=== PATIENT | male | born 1970 | race Caucasian/White ===

== ENCOUNTER → 2016-10-13 | Outpatient (REF) | payer BC | LOC: M OUTALCOH 15:52 | PROVIDERS: ATTEND Psychiatry & Neurology Psychiatry | DX: Z53.9 Procedure and treatment not carried out, unspecified reason (principal) ==

== ENCOUNTER 2020-07-30 14:41 | Inpatient (IN) | payer BC, SELFPAY ==
[~2020-07-30] VITALS: Ht 167.6 cm; Wt 80.6 kg
[2020-07-30] MEDS ORDERED: CLON0.5T2 PO (14:52)
[2020-07-30] MEDS ORDERED: PROP10TA56 PO (14:52)
[2020-07-30] MEDS ORDERED: CITA40TA4 PO (14:52)
[2020-07-30] MEDS ORDERED: IBUP200T45 PO (14:53)
[2020-07-30] MEDS ORDERED: ROBI1LIQ9 PO (14:53)
[2020-07-30] MEDS ORDERED: IBUPROFEN 600MG TAB PO ONE (15:00)
[2020-07-30] MEDS ORDERED: ACETAMINOPHEN 500 MG TAB PO ONE (15:15)
[2020-07-30] MEDS ORDERED: sub (15:19)
--- NOTE | 2020-07-30 16:03 | REP ---
INDICATION: cough fever COMPARISON: None. TECHNIQUE: Portable AP view of the chest FINDINGS: Subtle alveolar infiltrates primarily involving the bilateral perihilar, right infrahilar and right upper lobes suggest multifocal pneumonia. Findings may be related to COVID-19 pulmonary disease and correlation is required. No effusion. No pneumothorax. Mediastinum and cardiac silhouette appear normal. IMPRESSION: Perihilar and primarily right upper lobe opacities suggesting pneumonia. <Electronically signed by Armen Banerjee > 07/30/20 [id number]
[2020-07-30 16:05] LABS: RSV AMPLIFICATION NEGATIVE (NEGATIVE)
[2020-07-30] MEDS ORDERED: cefTRIAXone SOD 1 GM in D5W MINI-BAG PLUS 50 ML IV ONE (16:15)
[2020-07-30] MEDS ORDERED: AZITHROMYCIN INJ 500 MG, VIAL MATE ADAPTER 1 EACH in D5W 250 ML IV ONE (16:15)
[2020-07-30 16:59] LABS: HEMATOCRIT 35.8 % (42.0-52.0); HEMOGLOBIN 11.6 g/dl (13.5-17.5); MEAN CORPUSCULAR HEMOGLOBIN 30.2 pg (27.0-33.0); MEAN CORPUSCULAR HGB CONC 32.4 g/dl (32.0-36.5); MEAN CORPUSCULAR VOLUME 93.2 fl (80.0-96.0); PLATELET COUNT, AUTOMATED 234 10^3/uL (150-450); RED BLOOD COUNT 3.84 10^6/uL (4.30-6.10); WHITE BLOOD COUNT 13.6 10^3/uL (4.0-10.0)
[2020-07-30 17:24] LABS: ALBUMIN 3.2 GM/DL (3.2-5.2); ALT/SGPT 46 U/L (12-78); BILIRUBIN,TOTAL 1.4 MG/DL (0.2-1.0); BLOOD UREA NITROGEN 18 MG/DL (7-18); CALCIUM LEVEL 7.9 MG/DL (8.5-10.1); CARBON DIOXIDE LEVEL 31 MEQ/L (21-32); CHLORIDE LEVEL 106 MEQ/L (98-107); CREATININE FOR GFR 0.97 MG/DL (0.70-1.30); GLOMERULAR FILTRATION RATE > 60.0 (>56); GLUCOSE, FASTING 122 MG/DL (70-100); POTASSIUM SERUM 3.9 MEQ/L (3.5-5.1); SODIUM LEVEL 142 MEQ/L (136-145); TOTAL PROTEIN 6.5 GM/DL (6.4-8.2)
[2020-07-30 17:25] LABS: ATYPICAL LYMPH 3 % (0-5); BASOPHILS 2 % (0-1); LYMPHOCYTES 10 % (16-44); MONOCYTES 2 % (0-5); NEUTROPHILS 56 % (28-66); PLATELET ESTIMATE NORMAL (NORMAL)
[2020-07-30] MEDS: NS 1,000 ML IV SCH (17:29)
[2020-07-30] MEDS ORDERED: clonazePAM 0.5 MG TAB PO PRN (17:45)
[2020-07-30] MEDS ORDERED: ALBUTEROL SULFATE 2.5 MG/0.5 ML INH NEB SOLN INH PRN (17:45)
[2020-07-30] MEDS ORDERED: ACETAMINOPHEN TAB 650MG DOSE (2X325MG) PO PRN (17:45)
--- NOTE | 2020-07-30 17:55 | HPEPDOC ---
General Date of Admission 07/30/20 Date of Service: Jul 30, 2020 Chief Complaint The patient is a 50-year-old male admitted with a reason for visit of FEVER. Source: Patient Exam Limitations: No limitations Timing/Duration: 24 hours Severity: Moderate Associated Symptoms: Shortness of breath History of Present Illness Patient is 50 years old male with past history of opioid abuse, anxiety presented to the hospital with shortness of breath. Patient stated that for past 24 hours he has been having increased shortness of breath with fever and chills. He stated that his fever was around 103 associated with fatigue. In emergency room patient was found to have on chest x-ray Perihilar and primarily right upper lobe opacities suggesting pneumonia. Also patient developed leukocytosis of 13.7. Patient denied chest pain, palpitations, diarrhea or dysuria Home Medications Scheduled Citalopram Hydrobromide (Citalopram HBr) 40 Mg Tablet, 40 MG PO DAILY, (Reported) Scheduled PRN Clonazepam (Clonazepam) 0.5 Mg Tablet, 0.5 MG PO QHS PRN for SLEEP, (Reported) Ibuprofen (Ibu-200) 200 Mg Tablet, 400 MG PO QID PRN for PAIN / FEVER, (Reported) Propranolol HCl (Propranolol HCl) 10 Mg Tablet, 10 MG PO BID PRN for ANXIETY, (Reported) Allergies Coded Allergies: No Known Allergies (Unverified , 09/08/13) Past Medical History Medical History Anxiety, opioid abuse Family History I personally reviewed family history and found not pertinent Social History * Smoker: Denies Alcohol: sober Drugs: marijuana, other (methadone) A-FIB/CHADSVASC A-FIB History Current/History of A-Fib/PAF?: No Current PO Anticoag Therapy: No Review of Systems Constitutional: Reports: Chills, Fever, Weakness Eyes: Denies: Pain ENT: Denies: Head Aches Skin: Denies: Rash, Lesions Pulmonary: Reports: Dyspnea, Cough Cardiovascular: Denies: Chest Pain, Palpitations Gastrointestinal: Denies: Nausea, Vomiting Genitourinary: Denies: Dysuria Hematologic: Denies: Bruising Endocrine: Denies: Polydipsia, Polyphagia Musculoskeletal: Denies: Neck Pain Neurological: Denies: Weakness Psych: Reports: Mood Normal Physical Examination General Exam: Positive: Alert, Cooperative Eye Exam: Positive: PERRLA ENT Exam: Positive: Atraumatic Neck Exam: Positive: Supple; Negative: JVD Chest Exam: Positive: Rhonchi Heart Exam: Positive: Tachycardic Telemetry: Positive: Sinus Abdomen Exam: Positive: Normal bowel sounds Extremity Exam: Negative: Cyanosis Skin Exam: Positive: Nl turgor and temperature Neuro Exam: Positive: Normal Gait, Strength at 5/5 X4 ext Psych Exam: Positive: Mental status NL Vital Signs Vital Signs Date Time Temp Pulse Resp B/P (MAP) Pulse Ox O2 Delivery O2 Flow Rate FiO2 07/30/20 17:17 104 18 94 Nasal Cannula 2.0 07/30/20 17:15 121/63 (82) 07/30/20 16:47 100.7 Laboratory Data Labs 24H Laboratory Tests 2 07/30/20 15:10: Coronavirus (COVID-19)(PCR) NEGATIVE, Influenza Type A (RT-PCR) NEGATIVE, Influenza Type B (RT-PCR) NEGATIVE, Respiratory Syncytial Virus (PCR) NEGATIVE 07/30/20 16:23: Neutrophils (%) (Auto) , Nucleated Red Blood Cells % (auto) 0.0, Neutrophils 56, Band Neutrophils 27H, Lymphocytes (Manual) 10L, Monocytes (Manual) 2, Basophils (Manual) 2H, Atypical Lymphocytes 3, Red Blood Cell Morphology NORMAL, Platelet Estimate NORMAL, Anion Gap 5L, Glomerular Filtration Rate > 60.0, Lactic Acid Level 2.0, Calcium Level 7.9L, Total Bilirubin 1.4H, Aspartate Amino Transf (AST/SGOT) 47H, Alanine Aminotransferase (ALT/SGPT) 46, Alkaline Phosphatase 91, Total Protein 6.5, Albumin 3.2, Albumin/Globulin Ratio 1.0 CBC/BMP Laboratory Tests 07/30/20 16:23 Microbiology Microbiology 07/30/20 Blood Culture, Received Pending 07/30/20 Blood Culture, Received Pending Assessment/Plan Patient is 50 years old male with past history of opioid abuse, anxiety presented to the hospital with shortness of breath. Patient stated that for past 24 hours he has been having increased shortness of breath with fever and chills. He stated that his fever was around 103 associated with fatigue. In emergency room patient was found to have on chest x-ray Perihilar and primarily right u pper lobe opacities suggesting pneumonia. Also patient developed leukocytosis of 13.7. Patient denied chest pain, palpitations, diarrhea or dysuria Problems (1) Sepsis Status: Acute Problem Text: Secondary to multifocal pneumonia Patient developed leukocytosis, fever, tachypnea and tachycardia Blood culture IV fluid, antibiotic therapy (2) Multifocal pneumonia Status: Acute Problem Text: Community acquired pneumonia Azithromycin IV, ceftriaxone IV Inhalers Prednisone 40 mg for 5 days Plan / VTE VTE Prophylaxis Ordered?: Yes YURI REICH DO Jul 30, 2020 17:55
[2020-07-30] MEDS: predniSONE 20 MG TAB PO SCH (18:23)
--- NOTE | 2020-07-30 18:42 | ECGEPIP ---
[facility] - ED Test Date: 2020-07-30 Pat Name: KVNG GIRALDO Department: Room: - Gender: Male Road Design Engineer: TSTYESENIART : 1970 Requested By: Gisella Silverman Order Number: [id number] Reading MD: Gisella Silverman Measurements Intervals [place] Rate: 107 P: 47 CO: 144 QRS: 3 QRSD: 93 T: 31 QT: 322 QTc: 431 Interpretive Statements SINUS TACHYCARDIA NONSPECIFIC T-WAVE ABNORMALITY ABNORMAL RHYTHM ECG No prior Electronically Signed on 07-30-2020 18:41:50 EST by Gisella Silverman
[2020-07-30] MEDS: IPRATROPIUM 0.5MG/ALBUTEROL 2.5MG INH SOL UD 3ML (DUONEB) INH SCH (19:56)
[2020-07-30 20:35] VITALS: BP 105/59
[2020-07-31] MEDS: NS 1,000 ML IV SCH ×2 (01:07→09:06)
[2020-07-31] MEDS: IPRATROPIUM 0.5MG/ALBUTEROL 2.5MG INH SOL UD 3ML (DUONEB) INH SCH ×4 (04:00→11:29)
[2020-07-31 06:02] VITALS: BP 133/73
[2020-07-31 07:18] LABS: HEMATOCRIT 35.3 % (42.0-52.0); HEMOGLOBIN 11.1 g/dl (13.5-17.5); MEAN CORPUSCULAR HEMOGLOBIN 29.9 pg (27.0-33.0); MEAN CORPUSCULAR HGB CONC 31.4 g/dl (32.0-36.5); MEAN CORPUSCULAR VOLUME 95.1 fl (80.0-96.0); PLATELET COUNT, AUTOMATED 223 10^3/uL (150-450); RED BLOOD COUNT 3.71 10^6/uL (4.30-6.10); WHITE BLOOD COUNT 17.7 10^3/uL (4.0-10.0)
[2020-07-31 07:53] LABS: ALT/SGPT 40 U/L (12-78); BILIRUBIN,TOTAL 0.9 MG/DL (0.2-1.0); BLOOD UREA NITROGEN 16 MG/DL (7-18); CALCIUM LEVEL 8.1 MG/DL (8.5-10.1); CARBON DIOXIDE LEVEL 30 MEQ/L (21-32); CHLORIDE LEVEL 109 MEQ/L (98-107); CREATININE FOR GFR 0.74 MG/DL (0.70-1.30); GLOMERULAR FILTRATION RATE > 60.0 (>56); GLUCOSE, FASTING 110 MG/DL (70-100); MAGNESIUM LEVEL 2.3 MG/DL (1.8-2.4); POTASSIUM SERUM 3.7 MEQ/L (3.5-5.1); SODIUM LEVEL 144 MEQ/L (136-145); TOTAL PROTEIN 6.2 GM/DL (6.4-8.2)
[2020-07-31] MEDS ORDERED: CitaloPRAM (CeleXA) 20 MG TAB PO SCH (09:00)
[2020-07-31] MEDS ORDERED: ENOXAPARIN 40MG/0.4ML SYRINGE (J1650 PER 10MG) SC SCH (09:00)
[2020-07-31] MEDS: predniSONE 20 MG TAB PO SCH (09:06)
[2020-07-31] MEDS ORDERED: LEVO250T12 PO (11:02)
[2020-07-31] MEDS ORDERED: PRED20TA PO (11:02)
--- NOTE | 2020-07-31 14:47 | DS.PDOC ---
Discharge Summary General Date of Admission Jul 30, 2020 at 17:42 Date of Discharge 07/31/20 Discharge Summary PROCEDURES PERFORMED DURING STAY: [None]. ADMITTING DIAGNOSES: Sepsis Multifocal pneumonia DISCHARGE DIAGNOSES: Sepsis Multifocal pneumonia COMPLICATIONS/CHIEF COMPLAINT: Multifocal Pneumonia. HISTORY OF PRESENT ILLNESS: Patient is 50 years old male with past history of opioid abuse, anxiety presented to the hospital with shortness of breath. Patient stated that for past 24 hours he has been having increased shortness of breath with fever and chills. He stated that his fever was around 103 associated with fatigue. In emergency room patient was found to have on chest x-ray Perihilar and primarily right upper lobe opacities suggesting pneumonia. Also patient developed leukocytosis of 13.7. Patient denied chest pain, palpitations, diarrhea or dysuria HOSPITAL COURSE: During hospital stay following issue addressed (1) Sepsis Secondary to multifocal pneumonia Patient developed leukocytosis, fever, tachypnea and tachycardia Blood culture pending IV fluid, antibiotic therapy After treatment patient condition markedly improved. No fever, no chills, patient normotensive, discharged home with antibiotics. (2) Multifocal pneumonia Community acquired pneumonia Azithromycin IV, ceftriaxone IV Inhalers Prednisone 40 mg for 5 days DISCHARGE MEDICATIONS: Please see below. ALLERGIES: Please see below. PHYSICAL EXAMINATION ON DISCHARGE: VITAL SIGNS: Please see below. GENERAL APPEARANCE: NAD HEENT: no scleral icterus, no JVD, EOMI CARDIOVASCULAR: S1S2 LUNGS: CTA ABDOMEN: soft & not tender w palpitation MUSCULOSKELETAL: no cyanosis, no swelling INTEGUMENT: no generalized palor NEUROLOGICAL: cranial nerve function from 2-12 intact intact, follows commands, speech not dysarthric LABORATORY DATA: Please see below. IMAGING: COMPARISON: None. TECHNIQUE: Portable AP view of the chest FINDINGS: Subtle alveolar infiltrates primarily involving the bilateral perihilar, right infrahilar and right upper lobes suggest multifocal pneumonia. Findings may be related to COVID-19 pulmonary disease and correlation is required. No effusion. No pneumothorax. Mediastinum and cardiac silhouette appear normal. IMPRESSION: Perihilar and primarily right upper lobe opacities suggesting pneumonia. <Electronically signed by Armen Banerjee > 07/30/20 1557 DD: Armen Banerjee MD 07/30/20 1558 DT: AARON 07/30/20 155 DS: TOMEKA 07/30/20 15507/30/20 1558 PROGNOSIS: Good ACTIVITY: [As tolerated]. DIET: Regular DISPOSITION: 01 Home, Self-Care. Follow-up with PCP in 3-5 days DISCHARGE CONDITION: [Stable]. TIME SPENT ON DISCHARGE: Greater than 20 minutes. Vital Signs/I&Os Vital Signs Date Time Temp Pulse Resp B/P (MAP) Pulse Ox O2 Delivery O2 Flow Rate FiO2 07/31/20 06:12 99 Room Air 07/31/20 06:02 97.5 68 18 133/73 (93) 07/31/20 03:06 1.0 I&O- Last 24 Hours up to 6 AM 07/31/20 06:00 Intake Total 2407 ml Output Total 700 ml Balance 1707 ml Laboratory Data Labs 24H Laboratory Tests 2 07/30/20 15:10: Coronavirus (COVID-19)(PCR) NEGATIVE, Influenza Type A (RT-PCR) NEGATIVE, Influenza Type B (RT-PCR) NEGATIVE, Respiratory Syncytial Virus (PCR) NEGATIVE 07/30/20 16:23: Neutrophils (%) (Auto) , Nucleated Red Blood Cells % (auto) 0.0, Neutrophils 56, Band Neutrophils 27H, Lymphocytes (Manual) 10L, Monocytes (Manual) 2, Basophils (Manual) 2H, Atypical Lymphocytes 3, Red Blood Cell Morphology NORMAL, Platelet Estimate NORMAL, Anion Gap 5L, Glomerular Filtration Rate > 60.0, Lactic Acid Level 2.0, Calcium Level 7.9L, Total Bilirubin 1.4H, Aspartate Amino Transf (AST/SGOT) 47H, Alanine Aminotransferase (ALT/SGPT) 46, Alkaline Phosphatase 91, Total Protein 6.5, Albumin 3.2, Albumin/Globulin Ratio 1.0 07/31/20 07:07: Nucleated Red Blood Cells % (auto) 0.0, Anion Gap 5L, Glomerular Filtration Rate > 60.0, Calcium Level 8.1L, Total Bilirubin 0.9, Aspartate Amino Transf (AST/SGOT) 35, Alanine Aminotransferase (ALT/SGPT) 40, Alkaline Phosphatase 86, Total Protein 6.2L, Albumin 3.0L, Albumin/Globulin Ratio 0.9, Magnesium Level 2.3 CBC/BMP Laboratory Tests 07/30/20 16:23 07/31/20 07:07 Microbiology Microbiology 07/30/20 Blood Culture, Received Pending 07/30/20 Blood Culture, Received Pending Discharge Medications Scheduled Citalopram Hydrobromide (Citalopram HBr) 40 Mg Tablet, 40 MG PO DAILY, (Reported) Levofloxacin (Levofloxacin) 250 Mg Tablet, 1 TAB PO DAILY Prednisone (Prednisone) 20 Mg Tablet, 20 MG PO BID Scheduled PRN Clonazepam (Clonazepam) 0.5 Mg Tablet, 0.5 MG PO QHS PRN for SLEEP, (Reported) Ibuprofen (Ibu-200) 200 Mg Tablet, 400 MG PO QID PRN for PAIN / FEVER, (Reported) Propranolol HCl (Propranolol HCl) 10 Mg Tablet, 10 MG PO BID PRN for ANXIETY, (Reported) Allergies Coded Allergies: No Known Allergies (Unverified , 09/08/13) YURI REICH DO Jul 31, 2020 14:47
[2020-07-31] MEDS ORDERED: cefTRIAXone SOD 1 GM in D5W MINI-BAG PLUS 50 ML IV SCH (18:00)
[2020-07-31] MEDS ORDERED: AZITHROMYCIN INJ 500 MG, VIAL MATE ADAPTER 1 EACH in D5W 250 ML IV SCH (20:00)
== END 2020-07-31 12:10 | disposition home or self-care (01) | DRG 720 ==
LOC: M ED 14:41 → M ED INP 17:42 → ENRESERV 18:33 → M MS5PR 20:20
PROVIDERS: ADMIT Internal Medicine; ATTEND Internal Medicine
DX: A41.9 Sepsis, unspecified organism (principal); J18.9 Pneumonia, unspecified organism

== ENCOUNTER 2020-08-12 12:38 | Emergency (ER) | payer SELFPAY ==
[~2020-08-12] VITALS: Ht 15.2 cm; Wt 77.9 kg
[~2020-08-12 12:38] MED LIST: CITA40TA4 PO; CLON0.5T2 PO; IBUP200T45 PO; LEVO250T12 PO; PRED20TA PO; PROP10TA56 PO; ROBI1LIQ9 PO; sub
[2020-08-12 14:57] LABS: BASO % 0.3 % (0.0-1.0); EOS # 0.1 10^3/uL (0.0-0.5); EOS % 0.5 % (0.0-3.0); HEMATOCRIT 42.6 % (42.0-52.0); HEMOGLOBIN 14.3 g/dl (13.5-17.5); LYMPH # 3.5 10^3/uL (1.5-5.0); LYMPH % 29.2 % (24.0-44.0); MEAN CORPUSCULAR HEMOGLOBIN 31.2 pg (27.0-33.0); MEAN CORPUSCULAR HGB CONC 33.6 g/dl (32.0-36.5); MONO # 0.8 10^3/uL (0.0-0.8); MONO % 7.1 % (0.0-5.0); NEUTROPHILS # 7.5 10^3/uL (1.5-8.5); NEUTROPHILS % 62.6 % (36.0-66.0); PLATELET COUNT, AUTOMATED 379 10^3/uL (150-450); RED BLOOD COUNT 4.58 10^6/uL (4.30-6.10); WHITE BLOOD COUNT 11.9 10^3/uL (4.0-10.0)
--- NOTE | 2020-08-12 15:03 | REP ---
INDICATION: DYSPNEA/COUGH. COMPARISON: Comparison chest x-ray 07/30/2020. TECHNIQUE: Portable upright AP chest radiograph. FINDINGS: The lungs are well inflated and free of infiltrate. Pleural angles are sharp. Heart size is normal. Pulmonary vasculature is not increased. The right upper lobe infiltrate seen on the July 30, 2020 prior radiograph has resolved. No new infiltrate is seen. Monitoring electrodes are seen. IMPRESSION: No active disease. <Electronically signed by Brown Evans > 08/12/20 1500
[2020-08-12 15:13] LABS: INR 0.99; PROTHROMBIN TIME 13.3 SECONDS (12.5-14.3)
[2020-08-12 15:43] LABS: ALT/SGPT 35 U/L (12-78); BILIRUBIN,DIRECT 0.3 MG/DL (0.0-0.2); BILIRUBIN,TOTAL 1.4 MG/DL (0.2-1.0); BLOOD UREA NITROGEN 12 MG/DL (7-18); CALCIUM LEVEL 9.1 MG/DL (8.5-10.1); CARBON DIOXIDE LEVEL 29 MEQ/L (21-32); CHLORIDE LEVEL 106 MEQ/L (98-107); CK-MB VALUE MASS 1.7 NG/ML (<3.6); CPK CREATINE PHOSPHOKINASE 118 U/L (39-308); CREATININE FOR GFR 0.85 MG/DL (0.70-1.30); GLOMERULAR FILTRATION RATE > 60.0 (>56); GLUCOSE, FASTING 92 MG/DL (70-100); MB/CK RELATIVE INDEX 1.44 (< OR =4); POTASSIUM SERUM 4.1 MEQ/L (3.5-5.1); SODIUM LEVEL 140 MEQ/L (136-145); THYROID STIMULATING HORMONE 0.872 uIU/ML (0.358-3.740); THYROXINE (T4) 12.1 UG/DL (4.5-12.0); TOTAL PROTEIN 6.9 GM/DL (6.4-8.2); TROPONIN I < 0.02 NG/ML (< 0.10)
[2020-08-12 17:25] VITALS: BP 138/87
--- NOTE | 2020-08-13 21:29 | ECGEPIP ---
[facility] - ED Test Date: 2020-08-12 Pat Name: KVNG GIRALDO Department: Room: - Gender: Male Payable Processor: TY : 1970 Requested By: BARBARA Shell Order Number: [id number] Reading MD: Heraclio Israel Measurements Intervals [place] Rate: 73 P: 49 DE: 128 QRS: -12 QRSD: 83 T: 48 QT: 393 QTc: 434 Interpretive Statements SINUS RHYTHM RATE CHANGE COMPARED TO 07/30/20 Electronically Signed on 08-13-2020 21:29:26 EST by Heraclio Israel
== END 2020-08-12 17:44 | disposition home or self-care (01) ==
LOC: M ED 12:38
DX: R06.02 Shortness of breath (principal); R05 Cough; Z87.01 Personal history of pneumonia (recurrent); F41.9 Anxiety disorder, unspecified; F11.10 Opioid abuse, uncomplicated; Z79.899 Other long term (current) drug therapy
CPT/HCPCS: 71045; 80048; 80076; 82550; 82553; 83605; 84436; 84443; 84484; 85025; 85610; 87040; 93005; 93041; 94760; 99285; U0003

== ENCOUNTER → 2022-02-24 | Outpatient (CLI) | payer OTHER ==
[~2022-02-24] MED LIST changes: -CITA40TA4 PO; +CITA40TA7 PO; -IBUP200T45 PO; +IBUP200T46 PO; -LEVO250T12 PO; +LEVO250T3 PO
[2022-02-24 18:28] LABS: BASO % 0.6 % (0.0-1.0); EOS # 0.3 10^3/uL (0.0-0.5); EOS % 4.7 % (0.0-3.0); HEMATOCRIT 37.6 % (42.0-52.0); HEMOGLOBIN 12.5 g/dl (13.5-17.5); LYMPH # 2.5 10^3/uL (1.5-5.0); LYMPH % 40.7 % (24.0-44.0); MEAN CORPUSCULAR HEMOGLOBIN 31.3 pg (27.0-33.0); MEAN CORPUSCULAR HGB CONC 33.2 g/dl (32.0-36.5); MEAN CORPUSCULAR VOLUME 94.2 fl (80.0-96.0); MONO # 0.6 10^3/uL (0.0-0.8); MONO % 9.2 % (2.0-8.0); NEUTROPHILS # 2.7 10^3/uL (1.5-8.5); NEUTROPHILS % 44.5 % (36.0-66.0); PLATELET COUNT, AUTOMATED 320 10^3/uL (150-450); RED BLOOD COUNT 3.99 10^6/uL (4.30-6.10); WHITE BLOOD COUNT 6.2 10^3/uL (4.0-10.0)
[2022-02-24 19:09] LABS: ALBUMIN 3.8 GM/DL (3.2-5.2); ALT/SGPT 27 U/L (12-78); BILIRUBIN,TOTAL 0.8 MG/DL (0.2-1.0); BLOOD UREA NITROGEN 18 MG/DL (7-18); CALCIUM LEVEL 8.6 MG/DL (8.5-10.1); CARBON DIOXIDE LEVEL 32 MEQ/L (21-32); CHLORIDE LEVEL 106 MEQ/L (98-107); CHOLESTEROL LEVEL 176 MG/DL (<200); CHOLESTEROL RISK RATIO 3.826 (<5); CREATININE FOR GFR 0.92 MG/DL (0.70-1.30); GLOMERULAR FILTRATION RATE > 60.0 (>56); GLUCOSE, FASTING 89 MG/DL (70-100); HDL CHOLESTEROL 46 MG/DL (>40); LDL CHOLESTEROL 110 MG/DL (<100); NON-HDL-C 130 MG/DL; POTASSIUM SERUM 4.2 MEQ/L (3.5-5.1); SODIUM LEVEL 140 MEQ/L (136-145); TOTAL PROTEIN 7.1 GM/DL (6.4-8.2); TRIGLYCERIDES LEVEL 101 MG/DL (<150)
== END ==
LOC: M PLALAB 14:19
PROVIDERS: ATTEND Physician Assistant
DX: Z00.00 Encounter for general adult medical examination without abnormal findings (principal); Z13.220 Encounter for screening for lipoid disorders; Z12.5 Encounter for screening for malignant neoplasm of prostate
CPT/HCPCS: 36415; 80053; 80061; 84443; 85025; G0103

== ENCOUNTER → 2022-05-09 | Outpatient (CLI) | payer OTHER ==
[~2022-05-09] MED LIST changes: +LEVO1TAB38 PO; -LEVO250T3 PO
[2022-05-09 14:37] LABS: BASO % 0.4 % (0.0-1.0); EOS # 0.2 10^3/uL (0.0-0.5); EOS % 2.8 % (0.0-3.0); HEMATOCRIT 43.2 % (42.0-52.0); HEMOGLOBIN 14.2 g/dl (13.5-17.5); LYMPH # 1.7 10^3/uL (1.5-5.0); LYMPH % 21.1 % (24.0-44.0); MEAN CORPUSCULAR HEMOGLOBIN 30.7 pg (27.0-33.0); MEAN CORPUSCULAR HGB CONC 32.9 g/dl (32.0-36.5); MEAN CORPUSCULAR VOLUME 93.5 fl (80.0-96.0); MONO # 0.7 10^3/uL (0.0-0.8); MONO % 8.4 % (2.0-8.0); NEUTROPHILS # 5.3 10^3/uL (1.5-8.5); NEUTROPHILS % 66.9 % (36.0-66.0); PLATELET COUNT, AUTOMATED 310 10^3/uL (150-450); RED BLOOD COUNT 4.62 10^6/uL (4.30-6.10); WHITE BLOOD COUNT 7.9 10^3/uL (4.0-10.0)
[2022-05-09 15:17] LABS: HEMOGLOBIN A1c 5.2 %
[2022-05-09 15:19] LABS: ALBUMIN 3.9 GM/DL (3.2-5.2); ALT/SGPT 25 U/L (12-78); BILIRUBIN,TOTAL 0.5 MG/DL (0.2-1.0); BLOOD UREA NITROGEN 17 MG/DL (7-18); CALCIUM LEVEL 9.2 MG/DL (8.5-10.1); CARBON DIOXIDE LEVEL 35 MEQ/L (21-32); CHLORIDE LEVEL 100 MEQ/L (98-107); CHOLESTEROL LEVEL 204 MG/DL (<200); CHOLESTEROL RISK RATIO 3.344 (<5); CREATININE FOR GFR 0.98 MG/DL (0.70-1.30); GLOMERULAR FILTRATION RATE > 60.0 (>56); GLUCOSE, FASTING 112 MG/DL (70-100); HDL CHOLESTEROL 61 MG/DL (>40); LDL CHOLESTEROL 128 MG/DL (<100); NON-HDL-C 143 MG/DL; POTASSIUM SERUM 4.1 MEQ/L (3.5-5.1); SODIUM LEVEL 135 MEQ/L (136-145); TRIGLYCERIDES LEVEL 74 MG/DL (<150)
== END ==
LOC: M PLALAB 09:47
PROVIDERS: ATTEND Physician Assistant
DX: Z79.899 Other long term (current) drug therapy (principal)

== ENCOUNTER → 2022-07-21 | Outpatient (REF) | payer OTHER ==
[~2022-07-21] MED LIST changes: +ARIP1TAB4 PO; +SERT50TA29 PO
[2022-07-21 18:32] LABS: RSV AMPLIFICATION NEGATIVE (NEGATIVE)
== END ==
LOC: M LAB REF 16:54
PROVIDERS: ATTEND Physician Assistant
DX: B34.9 Viral infection, unspecified (principal)

== ENCOUNTER 2022-07-24 00:48 | Emergency (ER) | payer OTHER ==
[~2022-07-24] VITALS: Ht 167.6 cm; Wt 72.7 kg
[~2022-07-24 00:48] MED LIST changes: -ARIP1TAB4 PO; -SERT50TA29 PO
[2022-07-24] MEDS ORDERED: NS 1,000 ML IV ONE ×2 (00:55→02:30)
[2022-07-24 01:15] LABS: HEMATOCRIT 40.3 % (42.0-52.0); HEMOGLOBIN 13.7 g/dl (13.5-17.5); MEAN CORPUSCULAR HEMOGLOBIN 30.6 pg (27.0-33.0); PLATELET COUNT, AUTOMATED 400 10^3/uL (150-450); RED BLOOD COUNT 4.48 10^6/uL (4.30-6.10); WHITE BLOOD COUNT 22.1 10^3/uL (4.0-10.0)
[2022-07-24] MEDS ORDERED: ACETAMINOPHEN TAB 650MG DOSE (2X325MG) PO ONE (01:20)
[2022-07-24 01:29] LABS: ATYPICAL LYMPH 3 % (0-5); LYMPHOCYTES 3 % (16-44); MONOCYTES 9 % (0-5); NEUTROPHILS 81 % (28-66); PLATELET ESTIMATE NORMAL (NORMAL)
[2022-07-24 01:39] LABS: ETHYL ALCOHOL (ETHANOL) 0.003 % (0.000-0.010)
[2022-07-24 01:41] LABS: ACETAMINOPHEN LEVEL < 2.0 UG/ML (10.0-20.0); ALBUMIN 4.2 G/DL (3.2-5.2); ALKALINE PHOSPHATASE 121 U/L (46-116); ALT/SGPT 39 U/L (7.0-40); AST/SGOT 82 U/L (<34); BILIRUBIN,DIRECT 0.4 MG/DL (<0.4); BILIRUBIN,TOTAL 1.2 MG/DL (0.3-1.2); BLOOD UREA NITROGEN 25 MG/DL (9-23); CALCIUM LEVEL 10.2 MG/DL (8.5-10.1); CARBON DIOXIDE LEVEL 18 MMOL/L (20-31); CHLORIDE LEVEL 100 MMOL/L (98-107); CREATININE FOR GFR 1.68 MG/DL (0.70-1.30); GLOMERULAR FILTRATION RATE 45.6 (>56); GLUCOSE, FASTING 117 MG/DL (60-100); POTASSIUM SERUM 3.9 MMOL/L (3.5-5.1); SALICYLATE LEVEL < 3.0 MG/DL (<30); SODIUM LEVEL 139 MMOL/L (136-145); TOTAL PROTEIN 8.1 G/DL (5.7-8.2)
[2022-07-24 01:44] LABS: THYROID STIMULATING HORMONE 1.684 uIU/ML (0.55-4.78)
[2022-07-24 02:03] LABS: CPK CREATINE PHOSPHOKINASE 2086 U/L (46-171)
[2022-07-24 03:42] LABS: RSV AMPLIFICATION NEGATIVE (NEGATIVE)
[2022-07-24 04:56] LABS: CK-MB VALUE MASS 132.2 NG/ML (<3.6)
[2022-07-24 05:15] LABS: CALCIUM LEVEL 8.2 MG/DL (8.5-10.1); CREATININE FOR GFR 1.67 MG/DL (0.70-1.30); GLOMERULAR FILTRATION RATE 45.9 (>56); MB/CK RELATIVE INDEX 0.39 (< OR =4); POTASSIUM SERUM 3.1 MMOL/L (3.5-5.1)
[2022-07-24] MEDS ORDERED: NS 1,000 ML IV SCH (05:25)
[2022-07-24 05:26] LABS: APPEARANCE, URINE MANUAL HAZY (CLEAR); BILIRUBIN, URINE MANUAL NEGATIVE (NEGATIVE); BLOOD URINE MANUAL POSITIVE (NEGATIVE); COLOR, URINE MANUAL RED (YELLOW); GLUCOSE, URINE (UA) MANUAL NEGATIVE (NEGATIVE); KETONE, URINE MANUAL NEGATIVE (NEGATIVE); LEUKOCYTE ESTERASE, URINE MAN TRACE (NEGATIVE); NITRITE, URINE MANUAL NEGATIVE (NEGATIVE); PROTEIN, URINE MANUAL 3+ mg/dL (NEGATIVE); SPECIFIC GRAVITY,URINE MANUAL 1.015 (1.002-1.035); UROBILINOGEN, URINE MANUAL NORMAL (NORMAL)
[2022-07-24 05:33] LABS: SQUAMOUS EPITHELIAL CELL URINE MOD AMOUNT /hpf (SMALL AMT)
[2022-07-24 05:34] LABS: BACTERIA, URINE SMALL AMOUNT
[2022-07-24 05:58] LABS: AMPHETAMINES LEVEL URINE NEGATIVE (NEGATIVE); BARBITURATES URINE NEGATIVE (NEGATIVE); CANNABINOIDS URINE NEGATIVE (NEGATIVE); METHADONE URINE NEGATIVE (NEGATIVE); OPIATES URINE NEGATIVE (NEGATIVE); PHENCYCLIDINE URINE NEGATIVE (NEGATIVE)
[2022-07-24] MEDS ORDERED: HEPARIN DRIP 25,000 UNITS in IV 1 EA IV SCH (06:00)
[2022-07-24] MEDS ORDERED: ASPIRIN 81MG CHEW TABLET PO ONE (06:00)
[2022-07-24 06:03] LABS: BENZODIAZEPINES URINE POSITIVE (NEGATIVE); COCAINE METABOLITE URINE POSITIVE (NEGATIVE)
[2022-07-24] MEDS ORDERED: SERT50TA29 PO (07:32)
[2022-07-24] MEDS ORDERED: ARIP1TAB4 PO (07:32)
[2022-07-24] MEDS ORDERED: HOME MED LIST COMPLETE! XX SCH (07:35)
[2022-07-24 09:35] LABS: INR 1.1; PROTHROMBIN TIME 14.4 SECONDS (12.5-14.5)
[2022-07-24 09:36] LABS: PARTIAL THROMBOPLASTIN TIME 55.6 SECONDS (24.8-34.2)
[2022-07-24 10:45] VITALS: BP 116/69
== END 2022-07-24 11:08 | disposition short-term general hospital (02) ==
LOC: EDBD 00:48 → M ED 00:48
DX: M62.82 Rhabdomyolysis (principal); R74.8 Abnormal levels of other serum enzymes; N17.9 Acute kidney failure, unspecified; F14.10 Cocaine abuse, uncomplicated; R00.0 Tachycardia, unspecified; F41.9 Anxiety disorder, unspecified; F17.200 Nicotine dependence, unspecified, uncomplicated; Z79.899 Other long term (current) drug therapy; Z79.83 Long term (current) use of bisphosphonates
CPT/HCPCS: 70450; 71045; 72125; 72190; 80048; 80076; 80143; 80307; 81000; 81002; 81015; 82077; 82550; 82553; 84443; 84484; 85025; 85610; 85730; 87631; 93005; 93041; 94760; 96361; 96374; 99285; J1644

== ENCOUNTER 2023-01-03 12:14 | Emergency (ER) | payer OTHER ==
[~2023-01-03] VITALS: Ht 167.6 cm; Wt 83.3 kg
[~2023-01-03 12:14] MED LIST changes: +ARIP1TAB4 PO; +SERT50TA29 PO
[2023-01-03] MEDS ORDERED: NS 500 ML IV ONE ×2 (12:35→14:20)
[2023-01-03] MEDS ORDERED: IBUPROFEN 600MG TAB PO ONE (12:35)
[2023-01-03 13:11] LABS: BASO # 0.1 10^3/uL (0.0-0.2); BASO % 0.3 % (0.0-1.0); EOS # 0.1 10^3/uL (0.0-0.5); EOS % 0.6 % (0.0-3.0); HEMATOCRIT 39.5 % (42.0-52.0); HEMOGLOBIN 13.5 g/dl (13.5-17.5); LYMPH # 0.7 10^3/uL (1.5-5.0); MEAN CORPUSCULAR HEMOGLOBIN 30.5 pg (27.0-33.0); MEAN CORPUSCULAR HGB CONC 34.2 g/dl (32.0-36.5); MEAN CORPUSCULAR VOLUME 89.2 fl (80.0-96.0); MONO # 1.1 10^3/uL (0.0-0.8); MONO % 6.3 % (2.0-8.0); NEUTROPHILS # 15.5 10^3/uL (1.5-8.5); NEUTROPHILS % 87.8 % (36.0-66.0); PLATELET COUNT, AUTOMATED 230 10^3/uL (150-450); RED BLOOD COUNT 4.43 10^6/uL (4.30-6.10); WHITE BLOOD COUNT 17.6 10^3/uL (4.0-10.0)
[2023-01-03 13:33] LABS: ALBUMIN 3.9 G/DL (3.2-5.2); ALKALINE PHOSPHATASE 98 U/L (46-116); ALT/SGPT 47 U/L (7.0-40); AST/SGOT 57 U/L (<34); BILIRUBIN,DIRECT 0.2 MG/DL (<0.4); BILIRUBIN,TOTAL 0.8 MG/DL (0.3-1.2); BLOOD UREA NITROGEN 25 MG/DL (9-23); CALCIUM LEVEL 8.7 MG/DL (8.5-10.1); CARBON DIOXIDE LEVEL 27 MMOL/L (20-31); CHLORIDE LEVEL 107 MMOL/L (98-107); GLOMERULAR FILTRATION RATE > 60.0 (>56); GLUCOSE, FASTING 122 MG/DL (60-100); SODIUM LEVEL 142 MMOL/L (136-145); TOTAL PROTEIN 7.1 G/DL (5.7-8.2)
[2023-01-03 13:36] LABS: THYROXINE (T4) 9.6 UG/DL (4.5-10.9)
[2023-01-03 13:37] LABS: THYROID STIMULATING HORMONE 0.475 uIU/ML (0.55-4.78)
[2023-01-03] MEDS ORDERED: LevoFLOXacin IV 750 MG in IV 1 EA IV ONE (14:00)
[2023-01-03] MEDS ORDERED: ACETAMINOPHEN 325 MG TAB PO ONE (14:30)
[2023-01-03 15:32] VITALS: O2SAT 92
[2023-01-03 15:35] VITALS: BP 116/78
[2023-01-03] MEDS ORDERED: LEVO750T14 PO (15:36)
== END 2023-01-03 19:00 | disposition home or self-care (01) ==
LOC: M ED 12:14
DX: J18.9 Pneumonia, unspecified organism (principal); I10 Essential (primary) hypertension; F41.9 Anxiety disorder, unspecified; F32.A Depression, unspecified; Z87.01 Personal history of pneumonia (recurrent); Z79.899 Other long term (current) drug therapy
CPT/HCPCS: 71045; 80048; 80076; 83605; 83880; 84436; 84443; 85025; 87040; 87486; 87581; 87633; 87798; 93005; 93041; 94760; 96374; 99285; J1956

== ENCOUNTER 2023-12-06 05:51 | Emergency (ER) | payer OTHER ==
[~2023-12-06] VITALS: Ht 167.6 cm; Wt 70.2 kg
[~2023-12-06 05:51] MED LIST changes: +LEVO750T14 PO
[2023-12-06 05:52] VITALS: BP 168/102; TEMP 99.3; O2SAT 96
[2023-12-06] MEDS ORDERED: BUPR1FIL (05:57)
== END 2023-12-06 07:10 | disposition left against medical advice (07) ==
LOC: M ED 05:51
DX: Z53.21 Procedure and treatment not carried out due to patient leaving prior to being seen by health care provider (principal)

== ENCOUNTER 2023-12-09 16:53 | Inpatient (IN) | payer OTHER ==
[~2023-12-09] VITALS: Ht 167.6 cm; Wt 68.3 kg
[~2023-12-09 16:53] MED LIST changes: +BUPR1FIL SL
[2023-12-09] MEDS ORDERED: SUBO4MIS SL (17:18)
[2023-12-09 17:44] LABS: MEAN CORPUSCULAR HEMOGLOBIN 31.5 pg (27.0-33.0); MEAN CORPUSCULAR HGB CONC 34.2 g/dl (32.0-36.5); PLATELET COUNT, AUTOMATED 350 10^3/uL (150-450); RED BLOOD COUNT 4.13 10^6/uL (4.30-6.10); WHITE BLOOD COUNT 11.8 10^3/uL (4.0-10.0)
[2023-12-09 18:12] LABS: ETHYL ALCOHOL (ETHANOL) < 0.003 % (0.000-0.010)
[2023-12-09 18:13] LABS: ALBUMIN 3.7 G/DL (3.2-5.2); ALKALINE PHOSPHATASE 68 U/L (46-116); ALT/SGPT 29 U/L (7.0-40); AST/SGOT 38 U/L (<34); BILIRUBIN,DIRECT 0.3 MG/DL (<0.4); BILIRUBIN,TOTAL 0.8 MG/DL (0.3-1.2); BLOOD UREA NITROGEN 17 MG/DL (9-23); CALCIUM LEVEL 9.3 MG/DL (8.5-10.1); CARBON DIOXIDE LEVEL 31 MMOL/L (20-31); CHLORIDE LEVEL 101 MMOL/L (98-107); GLOMERULAR FILTRATION RATE > 60.0 (>56); GLUCOSE, FASTING 101 MG/DL (60-100); POTASSIUM SERUM 3.7 MMOL/L (3.5-5.1); SALICYLATE LEVEL < 3.0 MG/DL (<30); SODIUM LEVEL 137 MMOL/L (136-145); TOTAL PROTEIN 6.8 G/DL (5.7-8.2)
[2023-12-09 18:15] LABS: THYROID STIMULATING HORMONE 0.467 uIU/ML (0.55-4.78)
[2023-12-09] MEDS ORDERED: ZOLO100T PO (19:21)
[2023-12-09] MEDS ORDERED: HOME MED LIST COMPLETE! XX SCH (19:25)
[2023-12-09 19:57] LABS: AMPHETAMINES LEVEL URINE NEGATIVE (NEGATIVE); BARBITURATES URINE NEGATIVE (NEGATIVE); BENZODIAZEPINES URINE NEGATIVE (NEGATIVE); CANNABINOIDS URINE NEGATIVE (NEGATIVE); METHADONE URINE NEGATIVE (NEGATIVE); OPIATES URINE NEGATIVE (NEGATIVE); PHENCYCLIDINE URINE NEGATIVE (NEGATIVE)
[2023-12-09 19:58] LABS: COCAINE METABOLITE URINE POSITIVE (NEGATIVE)
[2023-12-10] MEDS: ARIPiprazole 2 MG TAB PO SCH (08:29)
[2023-12-10] MEDS ORDERED: MAALOX 30 ML SUSP *UDC PO PRN (12:40)
[2023-12-10] MEDS ORDERED: MOM 30ML SUSPENSION UDC PO PRN (12:40)
[2023-12-10] MEDS: NICOTINE 21MG/24HR 1 EA TRANSDERMAL TD SCH (16:30)
[2023-12-10] MEDS: diphenhydrAMINE 25MG CAP PO PRN (20:41)
[2023-12-11 06:16] VITALS: BP 99/64; TEMP 98.3; O2SAT 97
[2023-12-11] MEDS: ACETAMINOPHEN TAB 650MG DOSE (2X325MG) PO PRN (06:39)
[2023-12-11] MEDS: IBUPROFEN 400MG TAB PO PRN (08:10)
[2023-12-11] MEDS: SERTRALINE 100 MG TAB PO SCH (13:15)
[2023-12-11 18:39] VITALS: BP 138/76; TEMP 98.9
[2023-12-11] MEDS: clonazePAM 0.5 MG TAB PO PRN (20:18)
[2023-12-11] MEDS: busPIRone 10 MG TAB PO SCH (20:19)
[2023-12-12 06:28] VITALS: BP 140/85; TEMP 98; O2SAT 95
[2023-12-12 06:32] LABS: FREE T4 1.02 NG/DL (0.89-1.76); THYROID STIMULATING HORMONE 1.506 uIU/ML (0.55-4.78)
[2023-12-12] MEDS: SERTRALINE HCL 25 MG TABLET PO SCH (09:51)
[2023-12-12 18:14] VITALS: BP 155/82; TEMP 99
[2023-12-13 06:33] VITALS: BP 158/86; TEMP 97.8; O2SAT 99
[2023-12-13] MEDS: SERTRALINE 100 MG TAB PO SCH (08:46)
[2023-12-13 18:19] VITALS: BP 130/76; TEMP 98.7
[2023-12-14 06:35] VITALS: BP 144/87; TEMP 97.4; O2SAT 95
[2023-12-14 09:02] LABS: CHOLESTEROL RISK RATIO 3.73 (<5); HDL CHOLESTEROL 50.3 MG/DL (>40); LDL CHOLESTEROL 118.1 MG/DL (<100); NON-HDL-C 137.7 MG/DL
[2023-12-14 16:36] VITALS: BP 135/57; TEMP 98.9; O2SAT 98
[2023-12-15 06:30] VITALS: BP 141/84; TEMP 98.6; O2SAT 98
[2023-12-15 16:47] VITALS: BP 132/92; TEMP 97.1; O2SAT 98
[2023-12-15] MEDS: traZODone 50 MG TAB PO PRN (20:34)
[2023-12-16 06:15] VITALS: BP 130/72; TEMP 97.6; O2SAT 99
[2023-12-16 16:13] VITALS: BP 136/76; TEMP 99; O2SAT 99
[2023-12-17 06:10] VITALS: BP 128/86; TEMP 97.2; O2SAT 98
[2023-12-17] MEDS ORDERED: ZOLO100T PO (09:51)
[2023-12-17] MEDS ORDERED: TRAZ-252 PO (09:51)
[2023-12-17] MEDS ORDERED: BUSP10TA PO (09:51)
[2023-12-17] MEDS ORDERED: SERT25TA21 PO (09:51)
== END 2023-12-17 12:59 | disposition home or self-care (01) | DRG 776 ==
LOC: M ED 16:53 → M ED INP 12-10 12:37 → M PSY 12-10 15:10
PROVIDERS: ADMIT Student in an Organized Health Care Education/Training Program; ATTEND Student in an Organized Health Care Education/Training Program
DX: F15.951 Other stimulant use, unspecified with stimulant-induced psychotic disorder with hallucinations (principal); R45.850 Homicidal ideations; F17.290 Nicotine dependence, other tobacco product, uncomplicated; F41.9 Anxiety disorder, unspecified; F32.A Depression, unspecified; Z79.899 Other long term (current) drug therapy; Z91.51 Personal history of suicidal behavior

== ENCOUNTER 2023-12-23 00:27 | Emergency (ER) | payer OTHER ==
[~2023-12-23] VITALS: Ht 167.6 cm; Wt 68.2 kg
[~2023-12-23 00:27] MED LIST changes: +BUSP10TA PO; +SERT25TA21 PO; +SUBO4MIS SL; +TRAZ-252 PO; +ZOLO100T PO
[2023-12-23 01:03] LABS: HEMATOCRIT 40.3 % (42.0-52.0); HEMOGLOBIN 13.8 g/dl (13.5-17.5); MEAN CORPUSCULAR HEMOGLOBIN 30.9 pg (27.0-33.0); MEAN CORPUSCULAR HGB CONC 34.2 g/dl (32.0-36.5); MEAN CORPUSCULAR VOLUME 90.4 fl (80.0-96.0); PLATELET COUNT, AUTOMATED 438 10^3/uL (150-450); RED BLOOD COUNT 4.46 10^6/uL (4.30-6.10); WHITE BLOOD COUNT 12.4 10^3/uL (4.0-10.0)
[2023-12-23 01:25] LABS: ETHYL ALCOHOL (ETHANOL) < 0.003 % (0.000-0.010)
[2023-12-23 01:27] LABS: ALBUMIN 3.9 G/DL (3.2-5.2); ALKALINE PHOSPHATASE 88 U/L (46-116); ALT/SGPT 67 U/L (7.0-40); AST/SGOT 21 U/L (<34); BILIRUBIN,DIRECT 0.4 MG/DL (<0.4); BILIRUBIN,TOTAL 1.1 MG/DL (0.3-1.2); BLOOD UREA NITROGEN 14 MG/DL (9-23); CALCIUM LEVEL 9.7 MG/DL (8.5-10.1); CARBON DIOXIDE LEVEL 26 MMOL/L (20-31); CHLORIDE LEVEL 106 MMOL/L (98-107); CREATININE FOR GFR 0.78 MG/DL (0.70-1.30); GLOMERULAR FILTRATION RATE > 60.0 (>56); GLUCOSE, FASTING 118 MG/DL (60-100); POTASSIUM SERUM 3.7 MMOL/L (3.5-5.1); SALICYLATE LEVEL < 3.0 MG/DL (<30); SODIUM LEVEL 142 MMOL/L (136-145); TOTAL PROTEIN 7.4 G/DL (5.7-8.2)
[2023-12-23 01:29] LABS: THYROID STIMULATING HORMONE 1.508 uIU/ML (0.55-4.78)
[2023-12-23 03:30] LABS: AMPHETAMINES LEVEL URINE NEGATIVE (NEGATIVE); BARBITURATES URINE NEGATIVE (NEGATIVE); METHADONE URINE NEGATIVE (NEGATIVE); OPIATES URINE NEGATIVE (NEGATIVE); PHENCYCLIDINE URINE NEGATIVE (NEGATIVE)
[2023-12-23 03:31] LABS: CANNABINOIDS URINE NEGATIVE (NEGATIVE)
[2023-12-23 03:37] LABS: BENZODIAZEPINES URINE POSITIVE (NEGATIVE); COCAINE METABOLITE URINE POSITIVE (NEGATIVE)
[2023-12-23] MEDS ORDERED: BUSP10TA PO (08:03)
[2023-12-23] MEDS ORDERED: SERT25TA85 PO (08:03)
[2023-12-23] MEDS ORDERED: TRAZ-252 PO (08:04)
[2023-12-23] MEDS ORDERED: HOME MED LIST COMPLETE! XX SCH (08:05)
[2023-12-23] MEDS ORDERED: clonazePAM 0.5 MG TAB PO PRN (08:25)
[2023-12-23] MEDS ORDERED: traZODone 50 MG TAB PO PRN (08:25)
[2023-12-23] MEDS: SERTRALINE HCL 25 MG TABLET PO SCH (09:18)
[2023-12-23] MEDS: busPIRone 10 MG TAB PO SCH (09:18)
[2023-12-23] MEDS: SERTRALINE 100 MG TAB PO SCH (09:18)
[2023-12-23] MEDS ORDERED: LORazepam 2 MG TAB PO PRN (09:55)
[2023-12-23] MEDS: FOLIC ACID 1MG TAB PO SCH (10:04)
[2023-12-23] MEDS: THIAMINE 100 MG TAB PO SCH (10:04)
[2023-12-23] MEDS: MULTIVITAMINS/MINERALS THERAP 1 TAB PO SCH (10:04)
[2023-12-23 15:17] LABS: CPK CREATINE PHOSPHOKINASE 109 U/L (46-171)
[2023-12-23 18:20] VITALS: BP 133/65; TEMP 98.5; O2SAT 98
== END 2023-12-23 18:23 ==
LOC: M ED 00:27
DX: R45.851 Suicidal ideations (principal); F19.14 Other psychoactive substance abuse with psychoactive substance-induced mood disorder; I45.9 Conduction disorder, unspecified; F25.9 Schizoaffective disorder, unspecified; F32.A Depression, unspecified; Z79.899 Other long term (current) drug therapy

== ENCOUNTER 2024-08-22 08:48 | Inpatient (IN) | payer OTHER ==
[~2024-08-22] VITALS: Ht 167.6 cm; Wt 85.2 kg
[~2024-08-22 08:48] MED LIST changes: -LEVO750T14 PO; +LEVO75TAB PO; +SERT25TA85 PO
[2024-08-22] MEDS ORDERED: BUPR1SUB5 SL (09:48)
[2024-08-22 10:07] LABS: HEMATOCRIT 37.9 % (42.0-52.0); HEMOGLOBIN 13.1 g/dl (13.5-17.5); MEAN CORPUSCULAR HEMOGLOBIN 32.1 pg (27.0-33.0); MEAN CORPUSCULAR HGB CONC 34.6 g/dl (32.0-36.5); MEAN CORPUSCULAR VOLUME 92.9 fl (80.0-96.0); PLATELET COUNT, AUTOMATED 322 10^3/uL (150-450); RED BLOOD COUNT 4.08 10^6/uL (4.30-6.10); WHITE BLOOD COUNT 15.4 10^3/uL (4.0-10.0)
[2024-08-22 10:33] LABS: AMPHETAMINES LEVEL URINE NEGATIVE (NEGATIVE); BARBITURATES URINE NEGATIVE (NEGATIVE)
[2024-08-22 10:34] LABS: BENZODIAZEPINES URINE NEGATIVE (NEGATIVE); METHADONE URINE NEGATIVE (NEGATIVE); OPIATES URINE NEGATIVE (NEGATIVE); PHENCYCLIDINE URINE NEGATIVE (NEGATIVE)
[2024-08-22 10:35] LABS: ETHYL ALCOHOL (ETHANOL) < 0.003 % (0.000-0.010)
[2024-08-22 10:37] LABS: ALBUMIN 3.5 G/DL (3.2-5.2); ALKALINE PHOSPHATASE 79 U/L (40-129); ALT/SGPT 87 U/L (7.0-40); AST/SGOT 111 U/L (<34); BILIRUBIN,DIRECT 0.3 MG/DL (<0.4); BILIRUBIN,TOTAL 0.8 MG/DL (0.3-1.2); BLOOD UREA NITROGEN 17 MG/DL (9-23); CALCIUM LEVEL 9.7 MG/DL (8.5-10.1); CARBON DIOXIDE LEVEL 29 MMOL/L (20-31); CHLORIDE LEVEL 101 MMOL/L (98-107); CREATININE FOR GFR 0.63 MG/DL (0.70-1.30); GLOMERULAR FILTRATION RATE > 60.0 (>56); GLUCOSE, FASTING 99 MG/DL (60-100); POTASSIUM SERUM 3.9 MMOL/L (3.5-5.1); SALICYLATE LEVEL < 3.0 MG/DL (<30); SODIUM LEVEL 139 MMOL/L (136-145); TOTAL PROTEIN 7.2 G/DL (5.7-8.2)
[2024-08-22 10:46] LABS: CANNABINOIDS URINE POSITIVE (NEGATIVE); COCAINE METABOLITE URINE POSITIVE (NEGATIVE)
[2024-08-22] MEDS ORDERED: OLAN1TAB16 PO (13:10)
[2024-08-22] MEDS ORDERED: ZYPR10TA PO (13:10)
[2024-08-22] MEDS ORDERED: CLON1TAB17 PO (13:10)
[2024-08-22] MEDS ORDERED: HOME MED LIST COMPLETE! XX SCH (13:15)
[2024-08-22] MEDS: ACETAMINOPHEN 500 MG TAB PO ONE (13:22)
[2024-08-22 17:00] VITALS: BP 131/74; TEMP 97.2; O2SAT 98
[2024-08-22] MEDS ORDERED: MOM 30ML SUSPENSION UDC PO PRN (17:10)
[2024-08-22] MEDS ORDERED: MAALOX 30 ML SUSP *UDC PO PRN (17:10)
[2024-08-22] MEDS: NICOTINE 21MG/24HR 1 EA TRANSDERMAL TD SCH (17:32)
[2024-08-22] MEDS: ACETAMINOPHEN 325 MG TAB PO PRN (18:39)
[2024-08-22] MEDS: IBUPROFEN 400MG TAB PO PRN (22:48)
[2024-08-22] MEDS: diphenhydrAMINE 25MG CAP PO PRN (22:48)
[2024-08-23 06:32] VITALS: BP 120/70; TEMP 98.4; O2SAT 97
[2024-08-23 10:30] LABS: CPK CREATINE PHOSPHOKINASE 589 U/L (46-171)
[2024-08-23] MEDS: BUPRENORPHINE/NALOXONE 8-2MG SUBLINGUAL TABLET(SUBOXONE) SL SCH (10:47)
[2024-08-23 10:50] LABS: HEPATITIS B SURFACE ANTIGEN NEGATIVE (NEGATIVE)
[2024-08-23 11:11] LABS: HEPATITIS B CORE ANTIBODY IGM NEGATIVE (NEGATIVE); HEPATITIS C VIRUS ABY INDEX < 0.02 INDEX (<0.8)
[2024-08-23 15:27] VITALS: BP 122/71; TEMP 98.2; O2SAT 97
[2024-08-23] MEDS: OLANZapine 5 MG TAB PO SCH (20:46)
[2024-08-23] MEDS: OLANZapine 10 MG TAB PO SCH (20:46)
[2024-08-23] MEDS: clonazePAM 0.5 MG TAB PO SCH (20:47)
[2024-08-24 06:56] LABS: CHOLESTEROL RISK RATIO 4.64 (<5); HDL CHOLESTEROL 36.4 MG/DL (>40); LDL CHOLESTEROL 106.4 MG/DL (<100); NON-HDL-C 132.6 MG/DL
[2024-08-24 07:37] LABS: HEMOGLOBIN A1c 5.5 % (4.0-6.0)
[2024-08-24 16:08] VITALS: BP 134/82; TEMP 98.4; O2SAT 98
[2024-08-24] MEDS: traZODone 50 MG TAB PO PRN (20:06)
[2024-08-25 06:22] VITALS: BP 143/84; TEMP 97.9; O2SAT 97
[2024-08-25] MEDS: IBUPROFEN 600MG TAB PO PRN (15:22)
[2024-08-25 15:32] VITALS: BP 149/84; TEMP 97.9; O2SAT 99
[2024-08-25] MEDS: LIDOCAINE VISCOUS 2% SOLN 15ML UDC SS PRN (15:53)
[2024-08-26 06:41] VITALS: BP 132/68; TEMP 97.8; O2SAT 98
[2024-08-26 16:02] VITALS: BP 143/77; TEMP 98.3; O2SAT 95
[2024-08-27 06:39] VITALS: BP 118/58; TEMP 97.7; O2SAT 100
== END 2024-08-27 11:49 | disposition home health service (06) | DRG 751 ==
LOC: M ED 08:48 → M ED INP 14:37 → M PSY 16:38
PROVIDERS: ADMIT Psychiatry & Neurology Psychiatry; ATTEND Psychiatry & Neurology Psychiatry
DX: F33.3 Major depressive disorder, recurrent, severe with psychotic symptoms (principal); F25.9 Schizoaffective disorder, unspecified; R45.851 Suicidal ideations; Z79.899 Other long term (current) drug therapy; D72.829 Elevated white blood cell count, unspecified; F12.90 Cannabis use, unspecified, uncomplicated; F14.94 Cocaine use, unspecified with cocaine-induced mood disorder

== ENCOUNTER 2024-09-04 09:46 | Emergency (ER) | payer OTHER ==
[~2024-09-04] VITALS: Ht 167.6 cm; Wt 84.0 kg
[~2024-09-04 09:46] MED LIST changes: +BUPR1SUB5 SL; +CLON1TAB17 PO; +OLAN1TAB16 PO; +ZYPR10TA PO
[2024-09-04] MEDS: LORazepam 2 MG/ML 1ML VIAL IM STA (10:30)
[2024-09-04] MEDS: SUCRALFATE SUSP 1GM/10ML UD PO ONE (10:31)
[2024-09-04 13:24] VITALS: TEMP 98
[2024-09-04 17:33] VITALS: BP 138/87; O2SAT 98
[2024-09-04] MEDS: ACETAMINOPHEN 500 MG TAB PO ONE (17:59)
== END 2024-09-04 18:56 | disposition home or self-care (01) ==
LOC: M ED 09:46
DX: R13.10 Dysphagia, unspecified (principal); F25.9 Schizoaffective disorder, unspecified; F32.A Depression, unspecified; F41.9 Anxiety disorder, unspecified; F19.11 Other psychoactive substance abuse, in remission; Z86.79 Personal history of other diseases of the circulatory system; Z79.899 Other long term (current) drug therapy
CPT/HCPCS: 70360; 71046; 96372; 99283; J2060

== ENCOUNTER 2024-09-06 19:35 | Emergency (ER) | payer OTHER ==
[~2024-09-06] VITALS: Ht 167.6 cm; Wt 79.8 kg
[2024-09-06 20:20] LABS: HEMATOCRIT 41.7 % (42.0-52.0); HEMOGLOBIN 14.4 g/dl (13.5-17.5); MEAN CORPUSCULAR HEMOGLOBIN 31.6 pg (27.0-33.0); MEAN CORPUSCULAR HGB CONC 34.5 g/dl (32.0-36.5); MEAN CORPUSCULAR VOLUME 91.6 fl (80.0-96.0); PLATELET COUNT, AUTOMATED 433 10^3/uL (150-450); RED BLOOD COUNT 4.55 10^6/uL (4.30-6.10); WHITE BLOOD COUNT 14.9 10^3/uL (4.0-10.0)
[2024-09-06 20:44] LABS: AMPHETAMINES LEVEL URINE NEGATIVE (NEGATIVE); BENZODIAZEPINES URINE NEGATIVE (NEGATIVE)
[2024-09-06 20:45] LABS: BARBITURATES URINE NEGATIVE (NEGATIVE); METHADONE URINE NEGATIVE (NEGATIVE); OPIATES URINE NEGATIVE (NEGATIVE); PHENCYCLIDINE URINE NEGATIVE (NEGATIVE)
[2024-09-06 20:48] LABS: ETHYL ALCOHOL (ETHANOL) < 0.003 % (0.000-0.010)
[2024-09-06 20:49] LABS: ALBUMIN 3.7 G/DL (3.2-5.2); ALKALINE PHOSPHATASE 85 U/L (40-129); ALT/SGPT 38 U/L (7.0-40); AST/SGOT 32 U/L (<34); BILIRUBIN,DIRECT 0.2 MG/DL (<0.4); BILIRUBIN,TOTAL 0.5 MG/DL (0.3-1.2); BLOOD UREA NITROGEN 14 MG/DL (9-23); CALCIUM LEVEL 9.4 MG/DL (8.5-10.1); CARBON DIOXIDE LEVEL 26 MMOL/L (20-31); CHLORIDE LEVEL 101 MMOL/L (98-107); CREATININE FOR GFR 0.83 MG/DL (0.70-1.30); GLOMERULAR FILTRATION RATE > 60.0 (>56); GLUCOSE, FASTING 115 MG/DL (60-100); POTASSIUM SERUM 3.5 MMOL/L (3.5-5.1); SALICYLATE LEVEL < 3.0 MG/DL (<30); SODIUM LEVEL 140 MMOL/L (136-145); TOTAL PROTEIN 7.8 G/DL (5.7-8.2)
[2024-09-06 20:51] LABS: THYROID STIMULATING HORMONE 0.928 uIU/ML (0.55-4.78)
[2024-09-06 21:03] LABS: CANNABINOIDS URINE POSITIVE (NEGATIVE); COCAINE METABOLITE URINE POSITIVE (NEGATIVE)
[2024-09-06] MEDS ORDERED: NALO4SPR20 (22:29)
[2024-09-06] MEDS ORDERED: CLON1TAB8 PO (22:29)
[2024-09-06] MEDS ORDERED: HOME MED LIST COMPLETE! XX SCH (22:30)
[2024-09-06] MEDS: ACETAMINOPHEN 325 MG TAB PO ONE (22:43)
[2024-09-07] MEDS ORDERED: LIDOCAINE VISCOUS 2% SOLN 15ML UDC SS ONE (06:55)
[2024-09-07] MEDS: LIDOCAINE VISCOUS 2% SOLN 15ML UDC SSP ONE (07:25)
[2024-09-07] MEDS: ACETAMINOPHEN 500 MG TAB PO PRN (12:55)
[2024-09-07] MEDS: LIDOCAINE VISCOUS 2% SOLN 15ML UDC SSP PRN (17:46)
[2024-09-07] MEDS: clonazePAM 1 MG TAB PO ONE (19:45)
[2024-09-07] MEDS: OLANZapine 5 MG TAB PO ONE (19:45)
[2024-09-08 13:21] VITALS: BP 156/88; TEMP 97.5; O2SAT 97
== END 2024-09-08 13:23 | disposition home or self-care (01) ==
LOC: M ED 19:35
DX: F19.14 Other psychoactive substance abuse with psychoactive substance-induced mood disorder (principal); F32.A Depression, unspecified; F17.200 Nicotine dependence, unspecified, uncomplicated

== ENCOUNTER 2025-02-05 13:06 | Emergency (ER) | payer OTHER, SELFPAY ==
[~2025-02-05] VITALS: Ht 170.2 cm; Wt 58.3 kg
[~2025-02-05 13:06] MED LIST changes: +CLON1TAB8 PO; +NALO4SPR20
[2025-02-05 13:11] VITALS: BP 126/81; TEMP 96.8; O2SAT 98
== END 2025-02-05 15:32 | disposition left against medical advice (07) ==
LOC: M ED 13:06
DX: Z53.21 Procedure and treatment not carried out due to patient leaving prior to being seen by health care provider (principal)

== ENCOUNTER 2025-02-10 10:05 | Emergency (ER) | payer SELFPAY ==
[~2025-02-10] VITALS: Ht 167.6 cm; Wt 60.2 kg
[2025-02-10 10:12] VITALS: BP 115/74; TEMP 97.4; O2SAT 99
== END 2025-02-10 12:15 | disposition left against medical advice (07) ==
LOC: M ED 10:05
DX: Z53.21 Procedure and treatment not carried out due to patient leaving prior to being seen by health care provider (principal)